=== PATIENT | male | born 1955 | race Hispanic/Latino ===

== ENCOUNTER 2017-09-17 07:16 | Day surgery (SDC) | payer BC ==
[2017-09-17 07:40] VITALS: BMI 23.7
[2017-09-17 08:15] VITALS: O2SAT 100
[2017-09-17] MEDS ORDERED: Lactated Ringer's 500 ML IV ONE (08:55)
[2017-09-17] MEDS ORDERED: Propofol 10 mg/ml Inj (20 ML) ONE ×2 (08:59)
[2017-09-17 09:21] VITALS: TEMP 98.2
[2017-09-17 10:34] VITALS: PULSE 64
[2017-09-17 11:15] VITALS: BP 110/61; RESP 15
== END 2017-09-17 10:15 | disposition home or self-care (01) ==
LOC: C.ENDO 07:16
PROVIDERS: ATTEND Internal Medicine Gastroenterology
DX: Z12.11 Encounter for screening for malignant neoplasm of colon (principal); K64.8 Other hemorrhoids
CPT/HCPCS: 45378; 82948; J2001; J2704; J7120